=== PATIENT | female | born 1955 | race Two or more races ===

== ENCOUNTER 2022-06-05 09:52 | Outpatient (CLI) | payer OTHER | END 2022-06-05 10:04 | disposition home or self-care (01) | LOC: SONOGRAMA 09:52 | DX: R10.13 Epigastric pain (principal) ==

== ENCOUNTER 2024-12-10 09:07 | Emergency (ER) | payer OTHER ==
[~2024-12-10] VITALS: Ht 162.6 cm; Wt 68.0 kg
[2024-12-10] MEDS ORDERED: TOPROL XL50 M1 PO (09:25)
[2024-12-10] MEDS ORDERED: ACETAMINOPHEN 500 MG GEL..CAP PO ONE (09:31)
== END 2024-12-10 10:57 | disposition home or self-care (01) ==
LOC: ER 09:07
DX: R53.81 Other malaise (principal); J11.1 Influenza due to unidentified influenza virus with other respiratory manifestations; Z20.822 Contact with and (suspected) exposure to COVID-19; Z88.0 Allergy status to penicillin